=== PATIENT | male | born 1960 | race Caucasian/White ===

== ENCOUNTER 2019-04-07 16:29 | Emergency (ER) | payer MEDICARE, MEDICAID ==
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
--- NOTE | 2019-04-07 17:12 | EKG ---
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
--- NOTE | 2019-04-07 17:32 | NUR ---
SOC TELEMED INITATED AT 1730. WILL NOTIFY US WHEN A DOCTOR IS READY FOR CONSULT.
[2019-04-07 17:48] LABS: BASO # 0.1 x10^3/uL (0.0-0.2); BASO % 1 % (0-3); EOS # 0.2 x10^3/uL (0.0-0.7); EOS % 2 % (0-3); HEMATOCRIT 25.3 % (39.0-53.0); HEMOGLOBIN 8.4 g/dL (13.0-17.5); LYMPH # 0.7 x10^3/uL (1.0-4.8); LYMPH % 7 % (24-48); MEAN CORPUSCULAR HEMOGLOBIN 31 pg (25-35); MEAN CORPUSCULAR HGB CONC 33 g/dL (31-37); MEAN CORPUSCULAR VOLUME 94 fL (79-100); MONO # 0.9 x10^3/uL (0.0-1.1); MONO % 9 % (0-9); NEUT # 8.1 x10^3uL (1.8-7.7); NEUT % 81 % (31-73); PLATELET COUNT 410 x10^3/uL (140-400); RED BLOOD COUNT 2.69 x10^6/uL (4.30-5.70); RED CELL DISTRIBUTION WIDTH 16.5 % (11.5-14.5)
[2019-04-07 18:03] LABS: ALBUMIN 2.4 g/dL (3.4-5.0); ALBUMIN/GLOBULIN RATIO 0.6 (1.0-1.7); CALCIUM 8.8 mg/dL (8.5-10.1); CREATININE 0.8 mg/dL (0.7-1.3); GFR 98.6; MAGNESIUM 1.4 mg/dL (1.8-2.4); POTASSIUM 4.2 mmol/L (3.5-5.1); TOTAL BILIRUBIN 0.3 mg/dL (0.2-1.0); TOTAL PROTEIN 6.2 g/dL (6.4-8.2)
[2019-04-07] MEDS ORDERED: OLANZapine 2.5 MG TABLET PO ONE (20:15)
[2019-04-07] MEDS ORDERED: NICOTINE 21MG PATCH. TD ONE (20:15)
[2019-04-07] MEDS ORDERED: diphenhydrAMINE ORAL ELIXIR 12.5 MG/5 ML ML PO ONE (20:15)
[2019-04-07] MEDS ORDERED: diphenhydrAMINE HCL 25 MG CAPSULE PO ONE (20:15)
[2019-04-07 21:30] VITALS: BP 145/80
[2019-04-07] MEDS ORDERED: BENZTROPINE 2 MG/2 ML AMPUL. IM STA ×2 (21:38)
[2019-04-07] MEDS ORDERED: MAGNESIUM HYDROXIDE 2,400 MG/30 ML ORAL.SUSP. PO ONE ×2 (21:45→22:00)
[2019-04-07] MEDS ORDERED: ZIPRASIDONE IM 20 MG VIAL. IM ONE ×3 (21:45→22:00)
== END 2019-04-07 22:00 | disposition home or self-care (01) ==
LOC: ER 16:29
DX: F23 Brief psychotic disorder (principal); F20.9 Schizophrenia, unspecified; J44.9 Chronic obstructive pulmonary disease, unspecified; D64.9 Anemia, unspecified; E87.1 Hypo-osmolality and hyponatremia; R74.8 Abnormal levels of other serum enzymes; E83.42 Hypomagnesemia; E46 Unspecified protein-calorie malnutrition; F17.210 Nicotine dependence, cigarettes, uncomplicated
CPT/HCPCS: 36415; 80053; 83735; 85025; 85045; 93005; 96372; 99285; J3486; Q0163